=== PATIENT | female | born 1970 | race Caucasian/White ===

== ENCOUNTER → 2016-07-30 | Outpatient (CLI) | payer BC ==
[~2016-07-30] MED LIST: HYDR25CA PO; VENL150C56 PO
== END | disposition home or self-care (01) ==
LOC: C.PAPS 11:15
PROVIDERS: ATTEND Obstetrics & Gynecology
DX: Z01.419 Encounter for gynecological examination (general) (routine) without abnormal findings (principal); Z87.42 Personal history of other diseases of the female genital tract

== ENCOUNTER → 2016-07-30 | Outpatient (CLI) | payer BC ==
[2016-07-30 15:41] LABS: THYROID STIMULATING HORMONE 1.26 uIu/ml (0.300-4.500)
== END | disposition home or self-care (01) ==
LOC: C.LAB1850 14:26
PROVIDERS: ATTEND Obstetrics & Gynecology
DX: R53.83 Other fatigue (principal)

== ENCOUNTER → 2017-11-03 | Outpatient (CLI) | payer BC, OTHER ==
[2017-11-03 13:05] LABS: BASO % 0.6 %; BASO ABS # 0.04 K/uL (0-0.2); EOS % 3.7 %; EOS ABS # 0.26 K/uL (0-0.5); HEMATOCRIT 40.3 % (37-47); HEMOGLOBIN 13.6 g/dL (12.0-16.0); IG# 0.02 K/uL (0.00-0.02); LYMPH % 32.7 %; LYMPH ABS # 2.27 K/uL (1.2-3.4); MEAN CELL VOLUME 88.2 fL (80-100); MEAN CORPUSCULAR HEMOGLOBIN 29.8 pg (25-34); MEAN CORPUSCULAR HGB CONC 33.7 g/dl (32-36); MEAN PLATELET VOLUME 9.6 fL (7.4-10.4); MONO % 6.2 %; MONO ABS # 0.43 K/uL (0.11-0.59); NEUT % 56.5 %; NEUT ABS # 3.92 K/uL (1.4-6.5); PLATELET COUNT 307 K/uL (130-400); RED CELL DISTRIBUTION WIDTH CV 13.5 % (11.5-14.5); RED CELL DISTRIBUTION WIDTH SD 43.3 fL (36.4-46.3); WHITE BLOOD COUNT 6.94 K/uL (4.8-10.8)
[2017-11-03 13:23] LABS: T3 FREE 2.75 pg/ml (2.30-4.20)
[2017-11-03 13:44] LABS: ALBUMIN 3.3 gm/dl (3.4-5.0); ALT/SGPT 26 U/L (12-78); AST/SGOT 19 U/L (15-37); BLOOD UREA NITROGEN 13 mg/dl (7-18); CALCIUM 8.9 mg/dl (8.5-10.1); CARBON DIOXIDE 26 mmol/L (21-32); CHOLESTEROL 247 mg/dl (0-200); CREATININE 0.91 mg/dl (0.60-1.20); GLUCOSE 88 mg/dl (70-99); POTASSIUM 4.3 mmol/L (3.5-5.1); SODIUM 138 mmol/L (136-145)
[2017-11-03 13:54] LABS: ALKALINE PHOSPHATASE 72 U/L (45-117); LDL CHOLESTEROL CALCULATED 123 mg/dl; TOTAL PROTEIN 7.1 gm/dl (6.4-8.2); TRANSFERRIN 308 mg/dl (200-360)
== END | disposition home or self-care (01) ==
LOC: C.LABBC 09:02
PROVIDERS: ATTEND Physician Assistant
DX: E78.5 Hyperlipidemia, unspecified (principal); E55.9 Vitamin D deficiency, unspecified; F41.9 Anxiety disorder, unspecified; R53.81 Other malaise; R53.83 Other fatigue

== ENCOUNTER 2021-04-02 20:32 | Observation (INO) ==
[2021-04-02] MEDS ORDERED: ONDANSETRON INJ 2 MG/ML 2 ML VIAL IV STA (21:09)
[2021-04-02] MEDS ORDERED: HYDROmorphone INJ 1 MG/ML SYRINGE IV STA (21:09)
[2021-04-02] MEDS ORDERED: SODIUM CHLORIDE 0.9% 1000ML 1,000 ML IV ONE (21:09)
--- NOTE | 2021-04-02 21:09 | Emergency Department Note ---
Impression & Plan Pulmonary embolism, Chest pain, Near syncope, Headache ED Provider Note Name: LAURYN CARSON Age: 50 Sex: F Arrives Via: Walk-In Informant: Patient ED Provider: Augusto Lam MD Chief Complaint: PEs Impression: As Per Impression above Medical Decision Makin with history Asthma, Migraines, IBS arrives with worsening chest pain and near syncope in setting of known PEs diagnosed last evening and started on Eliquis. A bit tachypneic on exam but otherwise hr, sats OK. Repeat CT A not at this point indicated. CXR with questionable infiltrate RLL but suspect this is likely not infectious nor is there evidence overt pulmonary infarct at this time. She was given pain medications and hydration. With worsening symptoms hospitalist consulted for further evaluation. Of note patient with persistent headache which brought her back to ED as well. She is not meningitic and she had normal CT head just last evening. Reviewed with hospitalist who notes they will work up further. Prior Medical Record and Triage/Nursing Notes reviewed by Me Additional history obtained from chart Differentials:Reactive airway disease, pneumonia, pneumothorax, COPD, CHF, infections, cardiac ischemia, pulmonary embolism, musculoskeletal, gastrointestinal, as well as other pathologies. Vital Signs: reviewed and remarkable for no significant abnormalities Interventions: See Below Labs:Reviewed and remarkable for no significant abnormalities Imaging:See Below EKG:Per My Interpretation: Indication Chest Pain: NSR 80 bpm, qtc 482. No Ectopy. No Ischemia. Compared to EKG 04/02/21, no significant changes. Consults:Dr Tank HORNER Hospitalist Plan: Disposition:Hospitalization. Condition: Good History of Present Illness:Pleasant 50 yr old female arrives for worsening symptoms following diagnosis of PE last evening. She was started on Eliquis which she took roughly 12 hours prior to my evaluation. She notes since getting home worsening chest pains, headache, near syncope and weakness. She states nothing makes better, and exertion makes worse. No syncope, fevers, productive cough, abdominal pain, back pain, bleeding, nor other symptoms. Eliquis has not helped symptoms. She notes that headache is diffuse severe and throbbing. Similar to last night. Notes history MIgraines as well. Denies any trauma, nor injuries. She had CT head last evening which was negative ROS: See above HPI for pertinent positives & negatives. A total of 10 systems reviewed and were otherwise negative. Past Medical History:See Below Past Surgical History:See Below Family History:See Below Social History:See Below Home Medications:See Below Allergies:See Below Vitals:Blood Pressure: 122/70, Pulse 80, RR 26, T 37.7C, O2 95% on RA Physical Exam: GENERAL: Patient is anxious appearing and in moderate distress. EYES: No scleral icterus, unremarkable pupils. ENT: Mucous membranes moist, no nasal congestion. NECK: No masses appreciated, nomeningismus, trachea is midline. RESPIRATORY: No dyspnea. Clear to auscultation and equal bilaterally. No wheeze, no rhonchi. CARDIOVASCULAR: Regular rate and rhythm.No murmurs, rubs, gallops appreciated. GASTROINTESTINAL: Abdomen soft, non-tender, no peritonitis.Bowel sounds positive.No masses appreciated. BACK: No midline tenderness, no CVA tenderness EXTREMITIES: Normal motion all extremities, no cyanosis, no edema. TTP over left calf without swelling noted. NEUROLOGIC: Alert and oriented, no acute motor or sensory deficits, no focal weakness, cranial nerves grossly intact. SKIN: No rash, no jaundice, no diaphoresis. PSYCH: Appropriate GCS: 15 ED Course: Times/Reassessments: Stable and hospitalist in to evaluate Augusto Lam MD Past Med/Surg History Medical History Anxiety Claustrophobia Constipation Depression Hyperlipidemia IBS (irritable bowel syndrome) Postoperative nausea Surgical History H/O laparoscopy History of colonoscopy History of esophagogastroduodenoscopy (EGD) History of wisdom tooth extraction S/P appendectomy Family History Father Anxiety Depression Hypercholesterolemia Lung cancer Hypertension History of anesthesia reaction combative Brother Anxiety Depression Mother Hypercholesterolemia Hypertension Gallbladder disease Denies family history of Ovarian cancer Breast cancer Colorectal cancer Social History Smoking Status: Never smoker Tobacco Type: Cigarettes Second Hand Exposure: No; Do You Dip or Chew Tobacco: No; Tobacco Cessation Education Requested by Patient: No Hx Alcohol Use: Yes Alcohol type: beer, wine and hard liquor Hx Substance Use: No Preferred Language: Guamanian Communication Ability: Effective Visual Impairment: No Limitations Hearing Ability: Normal Hanger Off Required: No Beliefs That Will Affect Care: None marital status: Current Living Situation: Spouse Current Living Situation Comment: , and mother of pt live at home with pt. 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 Allergies Allergies Allergy/AdvReac Type Severity Reaction Status Date / Time hydromorphone [From Dilaudid] AdvReac Intermediate Nausea Verified 04/03/21 01:51 atorvastatin AdvReac Unknown foul body Verified 04/03/21 01:50 odor Home Meds Home Medications Medication Instructions Recorded Confirmed multivitamin 1 tab PO QAM 03/07/19 04/02/21 cholecalciferol (vitamin D3) 50 50 mcg PO QAM 11/28/20 04/02/21 mcg (2,000 unit) capsule magnesium 200 mg tablet 400 mg PO BID 11/28/20 04/02/21 mecobalamin (vitamin B12) 1,000 1,000 mcg PO QAM 11/28/20 04/02/21 mcg chewable tablet Previous Rx's Medication Instructions Recorded lorazepam 0.5 mg tablet 0.5 mg PO DAILY PRN #2 tab 12/03/20 sertraline 50 mg tablet 50 mg PO DAILY #30 tab 03/13/21 norethindrone acetate 1 mg-ethinyl 1 tab PO DAILY #21 tab 03/24/21 estradiol 20 mcg tablet (Loestrin) apixaban 5 mg (74 tabs) tablets in See Rx Instructions .ROUTE 04/02/21 a dose pack (Eliquis) .COMPLEX #74 ea Results & Data (ED) Vital Signs Vital Signs - 24 hr 04/02/21 20:33 04/02/21 20:45 04/02/21 20:50 Temperature 36.6 C Temperature Source Temporal Artery Scan Pulse Rate 83 79 78 Pulse Rate from SpO2 Sensor 79 79 Respiratory Rate 28 H 22 18 Blood Pressure 145/89 H Blood Pressure Mean 107 Pulse Oximetry 97 97 97 Oxygen Delivery Method Room Air Sepsis Recent Fever Within 48 Hours No Sepsis New/Unexplained Change in Mental Status No Sepsis Action Taken by Nursing No Action Required 04/02/21 21:00 04/02/21 21:10 04/02/21 21:20 Temperature Temperature Source Pulse Rate 76 74 Pulse Rate from SpO2 Sensor 77 74 73 Respiratory Rate 18 18 13 Blood Pressure Blood Pressure Mean Pulse Oximetry 98 97 97 Oxygen Delivery Method Sepsis Recent Fever Within 48 Hours Sepsis New/Unexplained Change in Mental Status Sepsis Action Taken by Nursing 04/02/21 21:30 04/02/21 21:40 04/02/21 21:50 Temperature Temperature Source Pulse Rate 73 75 81 Pulse Rate from SpO2 Sensor 73 76 81 Respiratory Rate 14 13 17 Blood Pressure 130/96 Blood Pressure Mean 107 Pulse Oximetry 97 95 98 Oxygen Delivery Method Sepsis Recent Fever Within 48 Hours Sepsis New/Unexplained Change in Mental Status Sepsis Action Taken by Nursing 04/02/21 22:00 Temperature Temperature Source Pulse Rate 67 Pulse Rate from SpO2 Sensor 68 Respiratory Rate 12 Blood Pressure 145/89 H Blood Pressure Mean 107 Pulse Oximetry 96 Oxygen Delivery Method Sepsis Recent Fever Within 48 Hours Sepsis New/Unexplained Change in Mental Status Sepsis Action Taken by Nursing Laboratory Data Result diagrams: 04/03/21 05:58 04/03/21 05:58 Lab Results 04/02/21 04/02/21 04/02/21 Range/Units 20:57 20:57 20:57 WBC 8.25 (4.8-10.8) K/uL RBC 4.28 (4.2-5.4) M/uL Hgb 12.8 (12.0-16.0) g/dL Hct 38.4 (37-47) % MCV 89.7 (80-100) fL MCH 29.9 (25-34) pg MCHC 33.3 (32-36) g/dL RDW Std Deviation 41.2 (36.4-46.3) fL RDW Coeff of Velvet 12.8 (11.5-14.5) % Plt Count 330 (130-400) K/uL MPV 9.6 (7.4-10.4) fL Immature Gran % (Auto) 0.2 % Neut % (Auto) 58.2 % Lymph % (Auto) 31.3 % [place] % (Auto) 7.0 % Eos % (Auto) 2.5 % Baso % (Auto) 0.8 % Neut # (Auto) 4.79 (1.4-6.5) K/uL Lymph # (Auto) 2.58 (1.2-3.4) K/uL [place] # (Auto) 0.58 (0.11-0.59) K/uL Eos # (Auto) 0.21 (0-0.5) K/uL Baso # (Auto) 0.07 (0-0.2) K/uL Immature Gran # (Auto) 0.02 (0.00-0.02) K/uL PT 9.8 (9.0-12.0) Seconds INR 1.0 (0.9-1.1) APTT 29.4 (21.0-31.0) Seconds PTT Ratio 1.1 Sodium 138 (136-145) mmol/L Potassium 3.8 (3.5-5.1) mmol/L Chloride 108 H (98-107) mmol/L Carbon Dioxide 25 (21-32) mmol/L Anion Gap 5.0 (3-11) BUN 16 (7-18) mg/dl Creatinine 1.01 (0.6-1.2) mg/dl Est Cr Clr Drug Dosing 75.2 ml/min Est GFR ( Amer) 76.2 ml/min Est GFR (Non-Af Amer) 65.8 ml/min BUN/Creatinine Ratio 16.1 (10-20) Glucose 112 H (70-99) mg/dl Calcium 9.0 (8.5-10.1) mg/dl Magnesium 2.2 (1.8-2.4) mg/dl Total Bilirubin 0.2 (0.2-1) mg/dl Direct Bilirubin < 0.1 (0-0.2) mg/dl AST 17 (15-37) U/L ALT 28 (12-78) U/L Alkaline Phosphatase 81 (45-117) U/L Troponin I < 0.015 (0-0.045) ng/ml Total Protein 6.8 (6.4-8.2) gm/dl Albumin 2.9 L (3.4-5.0) gm/dl Administered Medications Acetaminophen (Acetaminophen 500 Mg Tab) 1,000 mg PO Q8H PRN PRN Reason: Pain & Pre PT Stop: 05/03/21 01:44 EST Last Admin: 04/03/21 02:41 Dose: 1,000 mg Documented by: [id number] Apixaban (Apixaban 5 Mg Tablet) 10 mg PO BID ARLYN Stop: 05/03/21 01:44 EST Last Admin: 04/03/21 08:00 Dose: 10 mg Documented by: [id number] Admin: 04/03/21 03:24 Dose: 10 mg Documented by: [id number] Lactated Ringer's (Lr) 1,000 mls @ 125 mls/hr IV .Q8H ARLYN Stop: 04/03/21 17:44 Last Admin: 04/03/21 08:39 Dose: 125 mls/hr Documented by: [id number] Infusion: 04/03/21 08:39 Dose: 125 mls/hr Documented by: [id number] Admin: 04/03/21 03:25 Dose: 125 mls/hr Documented by: [id number] Magnesium Sulfate/Dextrose (Magnesium Sulfate / D5w) 1 gm in 100 mls @ 50 mls/hr IV Q2H ARLYN Stop: 04/03/21 17:29 Last Admin: 04/03/21 16:01 Dose: 50 mls/hr Documented by: [id number] Infusion: 04/03/21 16:01 Dose: 50 mls/hr Documented by: [id number] Admin: 04/03/21 14:26 Dose: 50 mls/hr Documented by: [id number] Ondansetron HCl (Ondansetron Inj 2 Mg/Ml 2 Ml Vial) 4 mg IV Q6H PRN PRN Reason: Nausea Stop: 05/03/21 01:44 EST Last Admin: 04/03/21 02:41 Dose: 4 mg Documented by: [id number] Sertraline HCl (Sertraline Hcl 50 Mg Tablet) 50 mg PO DAILY ARLYN Stop: 05/03/21 08:59 Last Admin: 04/03/21 08:00 Dose: 50 mg Documented by: [id number] Discontinued Medications Gadobutrol (Gadobutrol 65ml Vial) 8.5 ml IV ONCE ONE Stop: 04/03/21 01:08 Last Admin: 04/03/21 01:07 Dose: 8.5 ml Documented by: [id number] Hydromorphone HCl (Hydromorphone Inj 1 Mg/Ml Syringe) 1 mg IV NOW STA Stop: 04/02/21 21:10 Last Admin: 04/02/21 21:36 Dose: 1 mg Documented by: [id number] Sodium Chloride (Nss 1000ml) 1,000 mls @ 999 mls/hr IV .Q1H1M ONE Stop: 04/02/21 22:09 Last Infusion: 04/02/21 23:23 Dose: 0 mls/hr Documented by: [id number] Admin: 04/02/21 21:38 Dose: 999 mls/hr Documented by: [id number] Ketorolac Tromethamine (Ketorolac 30 Mg/Ml Vial) 30 mg IV NOW ONE Stop: 04/03/21 13:08 Last Admin: 04/03/21 13:23 Dose: 30 mg Documented by: [id number] Ondansetron HCl (Ondansetron Inj 2 Mg/Ml 2 Ml Vial) 4 mg IV NOW STA Stop: 04/02/21 21:10 Last Admin: 04/02/21 21:35 Dose: 4 mg Documented by: [id number] Oxycodone HCl (Oxycodone Hcl Ir 5 Mg Tab (Immediate Release)) 5 mg PO NOW STA Stop: 04/03/21 08:25 Last Admin: 04/03/21 08:39 Dose: 5 mg Documented by: [id number] Imaging Data Radiologist's Impression: Chest X-Ray 04/02/21 21:04 XR chest 1V portable INDICATION: History of pulmonary emboli. Worsening atypical chest pain.. TECHNIQUE: Single frontal radiograph of the chest was obtained. Comparison: Comparison is made to chest one view 04/01/2021 FINDINGS: No lines and tubes are seen. The cardiomediastinal silhouette is normal. The lungs are clear. No evidence of pleural effusion or pneumothorax. IMPRESSION: No acute chest disease. ACT 112: Negative or not required by law. Electronically signed by: Paul Hendrickson M.D. 04/03/2021 7:11 AM Discharge Plan Visit Data Chief Complaint: Cardiac Assessment Stated Complaint: CHEST PAIN, DIZZY, NAUSEA ED Provider: Augusto Lam Discharge Problem: Pulmonary embolism, Chest pain, Near syncope, Headache Patient Disposition: Admitted As Inpatient Discharge Instructions Interventions: ED Discharge Assessment Last Done: 04/03/21 00:07
[2021-04-02 21:18] LABS: Basophils # (auto) 0.07 K/uL (0-0.2); Basophils % (auto) 0.8 %; Eosinophils # (auto) 0.21 K/uL (0-0.5); Eosinophils % (auto) 2.5 %; Hematocrit (blood only) 38.4 % (37-47); Hemoglobin 12.8 g/dL (12.0-16.0); Immature Granulocytes # (auto) 0.02 K/uL (0.00-0.02); Immature Granulocytes % (auto) 0.2 %; Lymphocytes # (auto) 2.58 K/uL (1.2-3.4); Lymphocytes % (auto) 31.3 %; Mean Corpuscular Hemoglobin 29.9 pg (25-34); Mean Corpuscular Hgb Conc 33.3 g/dL (32-36); Mean Corpuscular Volume 89.7 fL (80-100); Mean Platelet Volume 9.6 fL (7.4-10.4); Monocytes # (auto) 0.58 K/uL (0.11-0.59); Neutrophils # (auto) 4.79 K/uL (1.4-6.5); Neutrophils % (auto) 58.2 %; Platelet Count 330 K/uL (130-400); RDW Coefficient of Variation 12.8 % (11.5-14.5); RDW Standard Deviation 41.2 fL (36.4-46.3); Red Blood Count 4.28 M/uL (4.2-5.4); White Blood Count 8.25 K/uL (4.8-10.8)
[2021-04-02 21:29] LABS: Partial Thromboplastin Ratio 1.1; Partial Thromboplastin Time 29.4 Seconds (21.0-31.0); Prothrombin Time 9.8 Seconds (9.0-12.0)
[2021-04-02 21:42] LABS: Alanine Aminotransferase 28 U/L (12-78); Albumin Level 2.9 gm/dl (3.4-5.0); Alkaline Phosphatase 81 U/L (45-117); Aspartate Aminotransferase 17 U/L (15-37); BUN Creatinine Ratio 16.1 (10-20); Bilirubin Direct < 0.1 mg/dl (0-0.2); Bilirubin,Total 0.2 mg/dl (0.2-1); Blood Urea Nitrogen 16 mg/dl (7-18); Carbon Dioxide 25 mmol/L (21-32); Chloride 108 mmol/L (98-107); Creatinine Clr Calc Pharmacy 75.2 ml/min; Est GFR (African American) 76.2 ml/min; Est GFR (Non-African American) 65.8 ml/min; Glucose 112 mg/dl (70-99); Magnesium 2.2 mg/dl (1.8-2.4); Potassium 3.8 mmol/L (3.5-5.1); Sodium 138 mmol/L (136-145); Total Protein 6.8 gm/dl (6.4-8.2); Troponin I < 0.015 ng/ml (0-0.045)
--- NOTE | 2021-04-02 22:05 | History & Physical Report ---
Date of Service April 02, 2021 Assessment & Plan (1) Pulmonary embolism: Plan: 50-year-old female returning who was seen in the ER yesterday for acute PE DVT, discharged home on apixaban therapy now returning with several complaints of ongoing headache, neck pain as well as cough and dyspnea. She is afebrile, hemodynamically stable. Not tachycardic. Blood pressure = 145/89. She is tachypneic at 20 but saturating well on room air with no clinical evidence of r espiratory distress. Suspect some degree of anxiety contributing to patient's symptoms. Given her stable clinical status do not strongly suspect clot propagation or new PE. Continue apixaban 10 mg p.o. twice daily to be continued for 7 days then 5 mg twice daily (2) Headache: Plan: Patient reports severe headache bandlike in nature as well as the feeling of pressure behind her left eye. No focal neurological deficits. Extraocular muscles were intact. Check MRV Pain control with Tylenol as needed -Oxycodone as needed for pain control Bowel regimen with Colace and MiraLAX as needed (3) Neck pain: Plan: Patient reports pain and fullness in her left neck Check MRI angio for possible clot Pain control with Tylenol as needed (4) Anxiety: Plan: Patient with long-term history of anxiety and depression. She has tried several agents in the past including Lexapro/Wellbutrin/Effexor. Does seem to be slightly anxious regarding her current clinical situation Continue sertraline 50 mg p.o. daily Continue Cymbalta 30 mg p.o. daily. Most recently decreased from twice daily in February due to concerns for weight gain -Continue Ativan 0.5 mg p.o. daily as needed Plan: FENLR at 125 mL/h x 2 L, electrolytes within normal limits, regular diet as tolerated Prophylaxispatient on apixaban 10 mg p.o. twice daily per treatment of acute VTE Codefull Dispoobservation to medical telemetry History of Present Illness Chief Complaint: fatigue, dizziness, LLE pain, subjective fever/chills, headache, pain in neck Primary Care Provider: Diogo Silva MD Olga Cr is a 50-year-old female with history of anxiety/depression hyperlipidemia who was seen in the ER last night (04/02/2021) with acute segmental and subsegmental PEs as well as left lower extremity DVT. Patient was low risk therefore was discharged home on oral anticoagulationapixaban. Patient returns to the ER today complaining of increased fatigue, subjective fevers and chills, ongoing pain and fullness in her neck as well as severe headache. She states she ate dinner this evening and then got dizzy afterwards. She also reports increased pain in her left lower extremity, now extending into her thigh. She had one episode of sharp substernal chest pain which quickly resolved. She continues to experience dyspnea on exertion as well as dry cough. She denies syncope. She has been taking but has not yet taken her evening dose today. Allergies Allergy/AdvReac Type Severity Reaction Status Date / Time hydromorphone [From Dilaudid] AdvReac Intermediate Nausea Verified 04/03/21 01:51 atorvastatin AdvReac Unknown foul body Verified 04/03/21 01:50 odor Home Medications Medication Instructions Recorded Confirmed Type multivitamin 1 tab PO QAM 03/07/19 04/02/21 History cholecalciferol (vitamin D3) 50 50 mcg PO QAM 11/28/20 04/02/21 History mcg (2,000 unit) capsule magnesium 200 mg tablet 400 mg PO BID 11/28/20 04/02/21 History mecobalamin (vitamin B12) 1,000 1,000 mcg PO QAM 11/28/20 04/02/21 History mcg chewable tablet lorazepam 0.5 mg tablet 0.5 mg PO DAILY PRN #2 tab 12/03/20 04/02/21 Rx sertraline 50 mg tablet 50 mg PO DAILY #30 tab 03/13/21 04/02/21 Rx norethindrone acetate 1 mg-ethinyl 1 tab PO DAILY #21 tab 03/24/21 04/02/21 Rx estradiol 20 mcg tablet (Loestrin) apixaban 5 mg (74 tabs) tablets in See Rx Instructions .ROUTE 04/02/21 04/02/21 Rx a dose pack (Eliquis) .COMPLEX #74 ea Past Med/Surg History Medical History Anxiety Claustrophobia Constipation Depression Hyperlipidemia IBS (irritable bowel syndrome) Postoperative nausea Surgical History H/O laparoscopy History of colonoscopy History of esophagogastroduodenoscopy (EGD) History of wisdom tooth extraction S/P appendectomy Family History Father Anxiety Depression Hypercholesterolemia Lung cancer Hypertension History of anesthesia reaction combative Brother Anxiety Depression Mother Hypercholesterolemia Hypertension Gallbladder disease Denies family history of Ovarian cancer Breast cancer Colorectal cancer Social History Smoking Status: Never smoker Tobacco Type: Cigarettes Second Hand Exposure: No; Hx Alcohol Use: Yes Alcohol type: beer, wine and hard liquor Hx Substance Use: No Preferred Language: Comoran Communication Ability: Effective Visual Impairment: No Limitations Hearing Ability: Normal Lamps Tester And Inspector Required: No Beliefs That Will Affect Care: None marital status: Current Living Situation: Family current occupational status: employed 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 Denies abdominal pain, nausea, vo miting, diarrhea, constipation. Physical Exam Physical Exam: General: patient resting comfortably, NAD, non-toxic in appearance, AA&O x 4, appears anxious Skin: warm, dry, intact, no rashes or lesions HEENT: NC/AT, PERRL, EOMI, anicteric sclera, conjunctiva without injection, external ear normal to inspection and nontender, nares patent, moist mucus membranes, dentition intact, no oropharyngeal lesions, neck supple, trachea midline, no LAD, no thyromegaly, no JVD Heart: +S1/S2, regular, no m/r/g Lungs: equal air entry bilaterally, no rales/rhonchi/wheezes Abd: +BS, soft, NT/ND, no masses/organomegaly/ascites Ext: warm, 2+ pulses in UE/LE bilaterally, no clubbing/cyanosis, + edema of left lower extremity with tenderness of horn and calf, mild tenderness left medial thigh Neuro: nonfocal, patient AA&O x 4, speech intact, no facial droop, moving all extremities on command with equal strength 5/5 Results & Data Results & Data ([facility]) Vital Signs (Past 12 Hours) Vital Signs Temp Pulse Resp BP Pulse Ox 04/02/21 20:33 36.6 C 83 28 H 145/89 H 97 Laboratory Results Laboratory Results WBC 8.25 K/uL (4.8-10.8) 04/02/21 20:57 RBC 4.28 M/uL (4.2-5.4) 04/02/21 20:57 Hgb 12.8 g/dL (12.0-16.0) 04/02/21 20:57 Hct 38.4 % (37-47) 04/02/21 20:57 MCV 89.7 fL (80-100) 04/02/21 20:57 MCH 29.9 pg (25-34) 04/02/21 20:57 MCHC 33.3 g/dL (32-36) 04/02/21 20:57 RDW Std Deviation 41.2 fL (36.4-46.3) 04/02/21 20:57 RDW Coeff of Velvet 12.8 % (11.5-14.5) 04/02/21 20:57 Plt Count 330 K/uL (130-400) 04/02/21 20:57 MPV 9.6 fL (7.4-10.4) 04/02/21 20:57 Immature Gran % (Auto) 0.2 % 04/02/21 20:57 Neut % (Auto) 58.2 % 04/02/21 20:57 Lymph % (Auto) 31.3 % 04/02/21 20:57 [place] % (Auto) 7.0 % 04/02/21 20:57 Eos % (Auto) 2.5 % 04/02/21 20:57 Baso % (Auto) 0.8 % 04/02/21 20:57 Neut # (Auto) 4.79 K/uL (1.4-6.5) 04/02/21 20:57 Lymph # (Auto) 2.58 K/uL (1.2-3.4) 04/02/21 20:57 [place] # (Auto) 0.58 K/uL (0.11-0.59) 04/02/21 20:57 Eos # (Auto) 0.21 K/uL (0-0.5) 04/02/21 20:57 Baso # (Auto) 0.07 K/uL (0-0.2) 04/02/21 20:57 Immature Gran # (Auto) 0.02 K/uL (0.00-0.02) 04/02/21 20:57 PT 9.8 Seconds (9.0-12.0) 04/02/21 20:57 INR 1.0 (0.9-1.1) 04/02/21 20:57 APTT 29.4 Seconds (21.0-31.0) 04/02/21 20:57 PTT Ratio 1.1 04/02/21 20:57 Sodium 138 mmol/L (136-145) 04/02/21 20:57 Potassium 3.8 mmol/L (3.5-5.1) 04/02/21 20:57 Chloride 108 mmol/L (98-107) H 04/02/21 20:57 Carbon Dioxide 25 mmol/L (21-32) 04/02/21 20:57 Anion Gap 5.0 (3-11) 04/02/21 20:57 BUN 16 mg/dl (7-18) 04/02/21 20:57 Creatinine 1.01 mg/dl (0.6-1.2) 04/02/21 20:57 Est Cr Clr Drug Dosing 75.2 ml/min 04/02/21 20:57 Est GFR ( Amer) 76.2 ml/min 04/02/21 20:57 Est GFR (Non-Af Amer) 65.8 ml/min 04/02/21 20:57 BUN/Creatinine Ratio 16.1 (10-20) 04/02/21 20:57 Glucose 112 mg/dl (70-99) H 04/02/21 20:57 Calcium 9.0 mg/dl (8.5-10.1) 04/02/21 20:57 Magnesium 2.2 mg/dl (1.8-2.4) 04/02/21 20:57 Total Bilirubin 0.2 mg/dl (0.2-1) 04/02/21 20:57 Direct Bilirubin < 0.1 mg/dl (0-0.2) 04/02/21 20:57 AST 17 U/L (15-37) 04/02/21 20:57 ALT 28 U/L (12-78) 04/02/21 20:57 Alkaline Phosphatase 81 U/L (45-117) 04/02/21 20:57 Troponin I < 0.015 ng/ml (0-0.045) 04/02/21 20:57 Total Protein 6.8 gm/dl (6.4-8.2) 04/02/21 20:57 Albumin 2.9 gm/dl (3.4-5.0) L 04/02/21 20:57 Code Status & VTE Plan VTE Prophylaxis Plan VTE Prophylaxis will be ordered: Yes PG Care Time/CCT Total # of Minutes Spent Total Time Spent with Patient: Total time spent is greater than 50% in coordination of care (as documented) at patient's floor/unit and/or counseling patient: Coding Level of Care Code INT OBSERVATION CARE 50M LVL 2 Diagnoses Pulmonary embolism I26.99 Headache R51.9 Neck pain M54.2 Anxiety F41.9
[2021-04-03] MEDS ORDERED: GADOBUTROL 65ML VIAL IV ONE (01:07)
[2021-04-03] MEDS ORDERED: DOCUSATE SODIUM 100 MG CAP PO PRN (01:45)
[2021-04-03] MEDS ORDERED: oxyCODONE HCL IR 5 MG TAB (IMMEDIATE RELEASE) PO PRN ×2 (01:45)
[2021-04-03] MEDS ORDERED: ACETAMINOPHEN 500 MG TAB PO PRN (01:45)
[2021-04-03] MEDS ORDERED: POLYETHYLENE (MIRALAX) 17 GM PACK PO PRN (01:45)
[2021-04-03] MEDS ORDERED: LORazepam 0.5 MG TAB PO PRN (01:45)
[2021-04-03] MEDS ORDERED: ONDANSETRON INJ 2 MG/ML 2 ML VIAL IV PRN (01:45)
[2021-04-03] MEDS ORDERED: APIXABAN 5 MG TABLET PO STA (02:00)
[2021-04-03] MEDS: APIXABAN 5 MG TABLET PO SCH ×2 (03:24→08:00)
[2021-04-03] MEDS: LACTATED RINGER'S 1,000 ML IV SCH ×2 (03:25→08:39)
[2021-04-03 06:18] LABS: Basophils # (auto) 0.03 K/uL (0-0.2); Basophils % (auto) 0.3 %; Eosinophils % (auto) 1.1 %; Hematocrit (blood only) 37.1 % (37-47); Hemoglobin 12.5 g/dL (12.0-16.0); Immature Granulocytes # (auto) 0.03 K/uL (0.00-0.02); Immature Granulocytes % (auto) 0.3 %; Lymphocytes # (auto) 1.78 K/uL (1.2-3.4); Lymphocytes % (auto) 19.3 %; Mean Corpuscular Hemoglobin 30.3 pg (25-34); Mean Corpuscular Hgb Conc 33.7 g/dL (32-36); Mean Corpuscular Volume 89.8 fL (80-100); Mean Platelet Volume 9.4 fL (7.4-10.4); Monocytes # (auto) 0.43 K/uL (0.11-0.59); Monocytes % (auto) 4.7 %; Neutrophils # (auto) 6.85 K/uL (1.4-6.5); Neutrophils % (auto) 74.3 %; Platelet Count 295 K/uL (130-400); RDW Coefficient of Variation 12.6 % (11.5-14.5); RDW Standard Deviation 41.1 fL (36.4-46.3); Red Blood Count 4.13 M/uL (4.2-5.4); White Blood Count 9.22 K/uL (4.8-10.8)
[2021-04-03 06:49] LABS: BUN Creatinine Ratio 13.2 (10-20); Calcium 8.5 mg/dl (8.5-10.1); Creatinine Clr Calc Pharmacy 81.7 ml/min; Est GFR (African American) 84.2 ml/min; Est GFR (Non-African American) 72.7 ml/min; Potassium 4.1 mmol/L (3.5-5.1)
--- NOTE | 2021-04-03 07:13 | XRay Report ---
XR chest 1V portable INDICATION: History of pulmonary emboli. Worsening atypical chest pain.. TECHNIQUE: Single frontal radiograph of the chest was obtained. Comparison: Comparison is made to chest one view 04/01/2021 FINDINGS: No lines and tubes are seen. The cardiomediastinal silhouette is normal. The lungs are clear. No evid ence of pleural effusion or pneumothorax. IMPRESSION: No acute chest disease. ACT 112: Negative or not required by law. Electronically signed by: Paul Hendrickson M.D. 04/03/2021 7:11 AM
--- NOTE | 2021-04-03 08:21 | Magnetic Resonance Report ---
MR venography head wo con INDICATION: MN ^severe headache, recent DVT/PE TECHNIQUE: Multiplanar and multisequence MR images of the brain were obtained with MR venography prot ocol Comparison: None available at the time of this dictation. FINDINGS: The white matter is unremarkable. The ventricular system is normal in appearance. There are no masses , mass effect, or midline shift. No abnormal enhancement is seen. The corpus callosum, pituitary gla nd, and cerebellar tonsils appear grossly unremarkable. Normal patency and flow is seen in the dural sinuses and visualized cerebral veins. The imaged portio ns of the paranasal sinuses, mastoid air cells, and orbits are unremarkable. IMPRESSION: No acute abnormalities. ACT 112: Negative or not required by law. Electronically signed by: Paul Hendrickson M.D. 04/03/2021 8:19 AM
[2021-04-03] MEDS ORDERED: oxyCODONE HCL IR 5 MG TAB (IMMEDIATE RELEASE) PO STA (08:24)
--- NOTE | 2021-04-03 08:24 | Hospitalist Progress Note ---
Date of Service April 03, 2021 Assessment & Plan (1) Pulmonary embolism: Plan: 50-year-old female returning who was seen in the ER yesterday for acute PE DVT, discharged home on apixaban therapy now returning with several complaints of ongoing headache, neck pain as well as cough and dyspnea. She is afebrile, hemodynamically stable. Not tachycardic. Blood pressure = 145/89. She is tachypneic at 20 but saturating well on room air with no clinical evidence of r espiratory distress. Suspect some degree of anxiety contributing to patient's symptoms. Given her stable clinical status do not strongly suspect clot propagation or new PE. Continue apixaban 10 mg p.o. twice daily to be continued for 7 days then 5 mg twice daily (2) Headache: Plan: Patient reports severe headache bandlike in nature as well as the feeling of pressure behind her left eye. No focal neurological deficits. Extraocular muscles were intact. Check MRV Pain control with Tylenol as needed -Oxycodone as needed for pain control Bowel regimen with Colace and MiraLAX as needed (3) Neck pain: Plan: Patient reports pain and fullness in her left neck Check MRI angio for possible clot Pain control with Tylenol as needed (4) Anxiety: Plan: Patient with long-term history of anxiety and depression. She has tried several agents in the past including Lexapro/Wellbutrin/Effexor. Does seem to be slightly anxious regarding her current clinical situation Continue sertraline 50 mg p.o. daily Continue Cymbalta 30 mg p.o. daily. Most recently decreased from twice daily in February due to concerns for weight gain -Continue Ativan 0.5 mg p.o. daily as needed Plan: FENLR at 125 mL/h x 2 L, electrolytes within normal limits, regular diet as tolerated Prophylaxispatient on apixaban 10 mg p.o. twice daily per treatment of acute VTE Codefull Dispoobservation to medical telemetry Admission and Anticipated Discharge Date Admission Date: April 02, 2021 Results & Data Results & Data ([facility]) Vital Signs (Past 12 Hours) Vital Signs Temp Pulse Pulse Resp BP BP Pulse Ox 04/03/21 07:41 66 04/03/21 07:30 98.4 F 66 18 129/77 96 04/03/21 04:21 98.1 F 79 18 120/77 96 04/03/21 01:19 84 04/03/21 01:15 98.1 F 80 15 157/91 H 96 04/03/21 01:12 98.1 F 80 15 157/91 H 96 04/03/21 00:00 73 20 96 04/02/21 23:50 70 12 97 04/02/21 23:40 68 13 96 04/02/21 23:30 74 16 129/82 96 04/02/21 23:20 71 12 94 04/02/21 23:10 81 18 95 04/02/21 23:00 73 14 131/87 95 04/02/21 22:50 75 17 95 04/02/21 22:40 69 16 95 04/02/21 22:30 83 18 04/02/21 22:20 69 14 96 04/02/21 22:10 73 20 96 04/02/21 22:00 67 12 145/89 H 96 04/02/21 21:50 81 17 98 04/02/21 21:40 75 13 95 04/02/21 21:30 73 14 130/96 97 04/02/21 21:20 13 97 04/02/21 21:10 74 18 97 04/02/21 21:00 76 18 98 04/02/21 20:50 78 18 97 04/02/21 20:45 79 22 97 04/02/21 20:33 97.9 F 83 28 H 145/89 H 97 PG Care Time/CCT Total # of Minutes Spent Total Time Spent with Patient: Total time spent is greater than 50% in coordination of care (as documented) at patient's floor/unit and/or counseling p atient: Coding Diagnoses Pulmonary embolism I26.99 Headache R51.9 Neck pain M54.2 Anxiety F41.9
--- NOTE | 2021-04-03 08:37 | Magnetic Resonance Report ---
MR angio neck wo/w con CLINICAL INDICATION: [place] ^Neck pain, recent PE. TECHNIQUE: 3D time of flight MRA of the neck was performed without and with intravenous contrast. COMPARISON: None at our institution at the time of this dictation. Findings/Impression: Motion artifact degrades images at the origins of the carotid and vertebral arteries. Flow signal con sistent with patency is shown within the common carotid, cervical segments of the internal carotid, e xternal carotid, and vertebral arteries. The left vertebral artery is dominant. No aneurysm, dissecti on, hemodynamically significant flow stenosis, nor occlusion is present. Assessment of stenosis of the internal carotid arteries is based on NASCET criteria. ACT 112: Negative or not required by law. Electronically signed by: Paul Hendrickson M.D. 04/03/2021 8:36 AM
[2021-04-03] MEDS ORDERED: DULoxetine HCL 30 MG CAP PO SCH (09:00)
[2021-04-03] MEDS ORDERED: SERTRALINE HCL 50 MG TABLET PO SCH (09:00)
[2021-04-03] MEDS ORDERED: KETOROLAC 30 MG/ML VIAL IV ONE (13:07)
[2021-04-03] MEDS: MAGNESIUM SULFATE / D5W 1 GM/100 ML BAG IV SCH ×2 (14:26→16:01)
--- NOTE | 2021-04-03 17:48 | Electrocardiogram Report ---
Test Reason : Blood Pressure : / mmHG Vent. Rate : 082 BPM Atrial Rate : 082 BPM P-R Int : 130 ms QRS Dur : 088 ms QT Int : 384 ms P-R-T Axes : 052 066 047 degrees QTc Int : 448 ms Normal sinus rhythm Low voltage QRS Borderline ECG When compared with ECG of 01-APR-2021 19:27, (unconfirmed) No significant change was found Confirmed by Musa Arizmendi ([id number]) on 04/03/2021 5:47:59 PM Referred By: REFERRED SELF Confirmed By:Timothy Arizmendi
--- NOTE | 2021-04-03 18:47 | Discharge Summary ---
Date of Service April 03, 2021 Admission HPI Per Admitting Provider Olga Cr is a 50-year-old female with history of anxiety/depression hyperlipidemia who was seen in the ER last night (04/02/2021) with acute segmental and subsegmental PEs as well as left lower extremity DVT. Patient was low risk therefore was discharged home on oral anticoagulationapixaban. Patient returns to the ER today complaining of increased fatigue, subjective fevers and chills, ongoing pain and fullness in her neck as well as severe headache. She states she ate dinner this evening and then got dizzy afterwards. She also reports increased pain in her left lower extremity, now extending into her thigh. She had one episode of sharp substernal chest pain which quickly resolved. She continues to experience dyspnea on exertion as well as dry cough. She denies syncope. She has been taking but has not yet taken her evening dose today. Principal Diagnosis headache acute pulmonary embolism Discharge Exam The patient appeared well Vital signs as documented. Lungs are clear to auscultation and appear unlabored Cardiac exam, Rhythm is regular.. No murmurs, rubs or gallops. Abdominal exam reveals normal bowel sounds, soft non tender, no masses Extremities are nonedematous and both pedal pulses are normal. Neurologic exam is alert and oriented, no focal loss of strength or sensation Skin is without bruises or rashes Psychologically is without concerns for anxiety or depression. Discharge Data Allergies Allergy/AdvReac Type Severity Reaction Status Date / Time hydromorphone [From Dilaudid] AdvReac Intermediate Nausea Verified 04/03/21 01:51 atorvastatin AdvReac Unknown foul body Verified 04/03/21 01:50 odor Consultations 04/02/21 21:04 ED Decision to Admit Stat Ordered Studies 04/03/21 22:04 MR angio neck wo/w con Stat MR venography head wo con Stat Hospital Course (1) Pulmonary embolism: 50-year-old female returning who was seen in the ER yesterday for acute PE DVT, discharged home on apixaban therapy now returning with several complaints of ongoing headache, neck pain as well as cough and dyspnea. She is afebrile, hemodynamically stable. Not tachycardic. Blood pressure = 145/89. She is tachypneic at 20 but saturating well on room air with no clinical evidence of respiratory distress. Continue apixaban 10 mg p.o. twice daily to be continued for 7 days then 5 mg twice daily (2) Headache: Patient reports severe headache bandlike in nature as well as the feeling of pressure, not unilateral. No focal neurological deficits. Extraocular muscles were intact. negaitve brain mri for venous issues or clots, previous CT head did not show sinusitis Pain control with Tylenol as needed -overall pain improved with sleep and a dose of toradol, pain not resolved and pt will be discharged (3) Neck pain: Patient reports pain and fullness in her left neck Check MRI angio negative Pain control with Tylenol as needed, warm compress and massage recommended (4) Anxiety: Patient with long-term history of anxiety and depression. She has tried several agents in the past including Lexapro/Wellbutrin/Effexor. Does seem to be slightly anxious regarding her current clinical situation Continue sertraline 50 mg p.o. daily Continue Cymbalta 30 mg p.o. daily. Most recently decreased from twice daily in February due to concerns for weight gain -Continue Ativan 0.5 mg p.o. daily as needed Codefull Total Time Total Time Spent Total Time Spent (In Minutes): It required greater than 30 minutes to prepare this patient for discharge Discharge Plan Discharge Items Patient Disposition: Home - Self-Care Reason For Visit: HEADACHE Discharge Diagnosis: intractable headache acute pulmonary embolism Activity: Resume your previous activity Non-emergency contact: Primary Care Provider Call non-emergency contact if: you have any medication questions, your symptoms worsen and you have a fever Follow-up/Referrals: Diogo Silva MD [Primary Care Provider] - Diet: Regular Addtl Attending Provider Instructions: please follow up with your primary care doctor to discuss the lab work that has been sent out regarding your Pulmonary embolism Please make an appointment with your Customer Operations Manager to discuss alternate means to control your menses continue to take your apixaban as ordered 10 mg twice a day for one week then 5 mg twice a day. the 10 mg twice a day is inclusive of all doses since you started Pending Studies at Discharge: Yes (lab tests from 04/01 for your bodies coagulation sensitivity) Stand-Alone Forms: My [employer], Smoking Cessation Medications and DC Order Prescriptions: Continued lorazepam 0.5 mg tablet 0.5 mg PO DAILY PRN (Reason: anxiety) Qty: 2 RF: 0 norethindrone ac-eth estradiol [Loestrin 07/16 ()] 1-20 mg-mcg tablet 1 tab PO DAILY Qty: 21 RF: 3 Eliquis 5 mg (74 tabs) tablets,dose pack See Rx Instructions .ROUTE .COMPLEX Qty: 74 RF: 0 multivitamin tablet 1 tab PO QAM RF: 0 sertraline 50 mg tablet 50 mg PO DAILY Qty: 30 RF: 2 magnesium 200 mg Tablet 400 mg PO BID RF: 0 cholecalciferol (vitamin D3) 50 mcg (2,000 unit) capsule 50 mcg PO QAM RF: 0 mecobalamin (vitamin B12) 1,000 mcg tablet,chewable 1,000 mcg PO QAM RF: 0 Discharge Orders: Discharge Order (Routine); Ordered 04/03/21 Ordered By: Franco Edwards Admission Data Admit Date/Time: 04/02/21 22:04 Attending Provider: Franco Edwards Admit Provider: Nadeen Fu Primary Care Provider: Diogo Silva V. Other Providers: Nadeen Fu Coding Level of Care Code D/C DAY MANAGEMENT >30 MINS Diagnoses Pulmonary embolism I26.99 Headache R51.9 Neck pain M54.2 Anxiety F41.9
--- NOTE | 2021-04-04 06:53 | Electrocardiogram Report ---
Test Reason : Blood Pressure : / mmHG Vent. Rate : 080 BPM Atrial Rate : 080 BPM P-R Int : 140 ms QRS Dur : 088 ms QT Int : 418 ms P-R-T Axes : 047 070 048 degrees QTc Int : 482 ms Normal sinus rhythm Prolonged QT Abnormal ECG When compared with ECG of 02-APR-2021 20:44, (unconfirmed) No significant change was found Confirmed by Musa Arizmendi ([id number]) on 04/04/2021 6:53:39 AM Referred By: REFERRED SELF Confirmed By:Timothy Arizmendi
== END 2021-04-03 19:45 | disposition home or self-care (01) ==
LOC: 2N 20:32 → ED 20:32 → SUATTDRO 22:04 → 2N 04-03 00:07
DX: Z80.1 Family history of malignant neoplasm of trachea, bronchus and lung; Z79.899 Other long term (current) drug therapy; Z82.49 Family history of ischemic heart disease and other diseases of the circulatory system; Z88.8 Allergy status to other drugs, medicaments and biological substances; R51.9 Headache, unspecified; F41.8 Other specified anxiety disorders; J45.909 Unspecified asthma, uncomplicated; E78.5 Hyperlipidemia, unspecified; M54.2 Cervicalgia; I26.99 Other pulmonary embolism without acute cor pulmonale